=== PATIENT | male | born 1965 | race Caucasian/White ===

== ENCOUNTER → 2017-11-07 | Outpatient (CLI) | payer BC ==
[~2017-11-07] MED LIST: ABILI; ABILIFY PO; CITA-105 PO; CITA20TA4 PO; GADOBUTROL 10 MMOL/10 ML (GADAVIST) VIAL IV ONE; OLME1TAB22 PO
[2017-11-07 11:59] LABS: ALANINE AMINOTRANSFERASE 35 U/L (0-55); ALBUMIN 4.4 GM/DL (3.2-4.5); ALKALINE PHOSPHATASE 58 U/L (40-136); BILIRUBIN,TOTAL 0.5 MG/DL (0.1-1.0); BUN/CREATININE RATIO 8; CARBON DIOXIDE 21 MMOL/L (21-32); CHLORIDE 104 MMOL/L (98-107); CREATININE SERUM 0.96 MG/DL (0.60-1.30); GFR ESTIMATED > 60; GLUCOSE 130 MG/DL (70-105); SODIUM 138 MMOL/L (135-145)
--- NOTE | 2017-11-07 13:07 | Diagnostic Imaging Report ---
PROCEDURE: MR imaging of the brain with and without contrast. TECHNIQUE: Multiplanar, multisequence MR imaging of the brain was performed with and without contrast. INDICATION: History of meningioma resection. COMPARISON: MRI brain without and with IV contrast 08/31/2014. 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 There is only a short segment of dural thickening of approximately 2 cm in length and 0.2 cm in thickness where the mass was once seen. Expected postoperative mild enhancement and thickening in the dura underlying the craniotomy. No new abnormal intracranial signal or mass. No restricted water diffusion or hemosiderin deposition. Normal morphology of the major midline structures, sella, posterior fossa, and cerebellopontine angle. The orbits are unremarkable on this non-dedicated exam. No hydrocephalus or extra-axial fluid collections. Normal intracranial flow voids. Small mucus retention cyst in the floor of the right maxillary sinus. Mild mucosal thickening in the ethmoid and left frontal sinuses. The mastoids are clear. Normal bone marrow signal. IMPRESSION: 1. Interval resection of the meningioma in the floor of the anterior cranial fossa. Expected postoperative findings. No new mass. No acute intracranial CT findings. 2. Small mucus retention cyst in the floor of the right maxillary sinus. Mild mucosal thickening in the ethmoid and left frontal sinuses. Dictated by: Dictated on workstation # [id number]
== END ==
LOC: RAD 11:18
DX: J34.1 Cyst and mucocele of nose and nasal sinus (principal); J32.1 Chronic frontal sinusitis; J32.2 Chronic ethmoidal sinusitis; Z86.011 Personal history of benign neoplasm of the brain; Z98.890 Other specified postprocedural states
CPT/HCPCS: 36415; 70553; 80053

== ENCOUNTER 2021-05-07 05:36 | Outpatient (CLI) | payer BC ==
[~2021-05-07] VITALS: Ht 177.8 cm; Wt 85.3 kg
[~2021-05-07 05:36] MED LIST changes: -GADOBUTROL 10 MMOL/10 ML (GADAVIST) VIAL IV ONE
== END 2021-05-08 08:27 | disposition home or self-care (01) ==
LOC: PREOP 05:36
PROVIDERS: ATTEND Surgery
DX: Z01.818 Encounter for other preprocedural examination (principal)

== ENCOUNTER 2021-05-16 06:40 | Day surgery (SDC) | payer BC ==
[2021-05-16] VITALS (10 sets, daily range): BP systolic 112–138; BP diastolic 69–98
[~2021-05-16] VITALS: Ht 177.8 cm; Wt 85.3 kg
[2021-05-16] MEDS ORDERED: ceFAZolin 2 GM IV Premixed 50 ML IV ONE (07:00)
[2021-05-16] MEDS ORDERED: LIDOCAINE/EPI 1%-1:100,000 (XYLOCAINE) 20ML ONE (07:08)
[2021-05-16] MEDS: LACTATED RINGERS 1,000 ML IV PRN ×2 (07:26→09:32)
--- NOTE | 2021-05-16 07:49 | Progress Note-Pre Operative ---
Pre-Operative Progress Note H&P Reviewed The H&P was reviewed, patient examined and no changes noted. Time Seen by Provider: 07:45 Date H&P Reviewed: May 16, 2021 Time H&P Reviewed: 07:45 Pre-Operative Diagnosis: b/l inguinal hernia PANTERA DAVIS DO May 16, 2021 07:49
[2021-05-16] MEDS ORDERED: fentaNYL INJ 100 MCG/2 ML AMP ONE (07:58)
[2021-05-16] MEDS ORDERED: MIDAZOLAM 2 MG/2 ML (VERSED) VIAL ONE (07:58)
[2021-05-16] MEDS ORDERED: ONDANSETRON 4 MG/2 ML (SDV) Z0FRAN ONE (09:40)
[2021-05-16] MEDS ORDERED: SUCCINYLCHOLINE INJ 100 MG/5 ML SYR/VIAL ONE (09:40)
[2021-05-16] MEDS ORDERED: NEOSTIGMINE 3 MG/3 ML VIAL ONE (09:40)
[2021-05-16] MEDS ORDERED: ROCURONIUM 10 MG/ML 5 ML SYRINGE IV ONE (09:40)
[2021-05-16] MEDS ORDERED: GLYCOPYRROLATE 0.2 MG/ML (ROBINUL) 2 ML VIAL ONE (09:40)
[2021-05-16] MEDS ORDERED: proPOfol 200 MG/20 ML (DIPRIVAN) VIAL IV ONE (09:40)
[2021-05-16] MEDS ORDERED: LIDOCAINE PF 2% 5 ML (XYLOCAINE) VIAL ONE (09:40)
[2021-05-16] MEDS ORDERED: SEVOFLURANE (ULTANE) 15 ML INHAL SOLN ONE (10:30)
[2021-05-16] MEDS ORDERED: HYDROmorphone 2 MG/ML VIAL (DILAUDID) ONE (10:37)
--- NOTE | 2021-05-16 10:48 | Progress Note-Post Operative ---
Post-Operative Progess Note Surgeon (s)/Newspaper Columnist (s) Surgeon PANTERA DAVIS DO Newspaper Columnist: RYAN PetersenII Pre-Operative Diagnosis b/l inguinal hernia Post-Operative Diagnosis Left incarcerated inguinal hernia intraperitoneal mass Procedure & Operative Findings Date of Procedure 05/16/21 Procedure Performed/Findings 1) Laparoscopic Left Inguinal herniarraphy with mesh placement - robotic assisted 2) Exc of intraperitoneal mass After informed consent was obtained, the patient was brought to the operating room and placed on the operating table in a supine position. He was sterilely prepped and draped in a normal fashion. Local lidocaine was used to infiltrate the skin above the umbilicus. I made an incision with #11 blade, carried down to the skin into subcutaneous tissue and then deepened down the subcutaneous tissue with Bovie electrocautery down to the fascia. Fascia was incised with Bovie electrocautery and bluntly entered the abdomen, swept a finger around, placed 0 Vicryl [id number] suture and placed limited trocar port under direct visualization. Created pneumoperitoneum, able to visualize the hernia and took a picture of this and then placed two 8 mm ports about 10 cm on either side of the midline port using a local lidocaine, 11 blade for stab incision and then advanced the robotic port under direct visualization. Once this was in, I then placed the patient in Trendelenburg and then placed the working instruments, the fenestrated bipolar and the scissors. Looked on the left side and saw an incarcerated indirect inguinal hernia. I did not see any hernia defect on the right side. On the left there was Sigmoid colon in the hernia and actually it was attached to the peritoneal part of the sac. I carefully started to reduce this with grasper and with some pressure from the outside, unable to get it completely reduced; so I started dissection. I came across the peritoneum approximately 8 cm away from the hernia defect, going across laterally starting lateral about 17cm and cutting toward the median umbilical ligament. I then carefully dissected the visceral peritoneum away and down and then in the midline, went through the parietal side and dissected down to the pubic tubercle, dissecting this down carefully pushing the peritoneum away, I was able to then visualize the pubic tubercle and Jax's ligament. I went 2 cm posterior and at this point, we then had a critical view of the dissection, able to dissect 2 cm across the midline to the right side, 2 cm posterior to the Jax's ligament. I then took the scissors out and placed a Cadiere grasper to help reduce the colon from the hernia. Finally able to get the colon out of the hernia and then started to then parietalize the vas deferens and spermatic vessels right at the groove between Jax's and iliac vein and able to dissect, make sure there was no peritoneum between those two, able to see the indirect hernia space, took a picture of this, looked at the femoral space (no hernia seen). Then I carefully teased out the hernia sac and could visualize the indirect hernia space. Next I looked on the cord and cord structures. There was a large cord lipoma that I was able to reduce off the cord. I could clearly see the inguinal canal and the indirect space. Next I carried the posterior lateral dissection all the way out and then placed a 12 x 17 Midwieght Bard 3DMax mesh. It laid in nicely, covered the hernia defect and the rest of the area. It was above the peritoneum, sutured it at the pubic tubercle with a 3-0 Vicryl suture and tied this off. This appeared to lay in very nicely. I then brought down the pneumoperitoneum to about 8 mmHg and then started closing the peritoneum. Started medially and used a 2-0 V-lock barbed suture to start a running stitch to close the peritoneum. This was closed nicely, took a picture of the closure at this point, then removed both needles had switched to a suture sales warehouse driver from the scissors. I was looking at the sigmoid and saw a mass right next to it; took a picture and then elected to remove it for pathology. Carefully grasped next to it and started cutting out with the scissors, sharply and controlling bleeding with the cautery. Able to remove very carefully, looked like it was away from the colon and no injury seen. Placed a bag in the abdomen and then removed the speciment and passed off the table to send to pathology. The patient was then placed back supine, removed all ports under direct visualization, allowed pneumoperitoneum to escape and then closed the supraumbilical incision, closing the fascia with 0 Vicryl suture previously placed. Copiously irrigated all incisions and then closed the two small 8 mm incisions with two interrupted 4-0 undyed Monocryl subcuticular stitches and closed the supraumbilical incision with three interrupted undyed Monocryl subcuticular stitch. Area was cleaned and dried. Dermabond was placed. The patient tolerated the procedure. The sponge, instrument and needle counts were correct at the end of the case. Anesthesia Type GET Estimated Blood Loss Estimated blood loss (mL): less than 5ml Specimens/Packing Specimens Removed intraperitoneal mass PANTERA DAVIS DO May 16, 2021 10:48
[2021-05-16] MEDS ORDERED: ACHD5005 PO (10:49)
--- NOTE | 2021-05-16 10:50 | Discharge Inst-Surgical ---
Discharge Inst-Surgical Depart Medication/Instructions New, Converted or Re-Newed RX: Transmitted to Pharmacy Patient Instructions Follow up Appt: Make appointment for 1 week. [phone] Instructions: No lifting greater than 20 pounds. No strenuous activity. May shower in 24 hours, no tub bath or soaking. Use incentive spirometer at home as directed. No Smoking Skin/Wound Care: May remove bandages in am. You need to leave the Dermabond on incision it will fall off on it's own. Symptoms to Report: Appetite Changes, Extremity Discoloration, Numbness/Tingling, Swelling Increased, Bleeding Excessive, Eyesight Changes, Pain Increased, Urine Color Change, Constipation(Persistent), Fever over 101 degree F, Pain/Pressure in chest, Urinating Difficulty, Cough Up/Vomit Blood, Heart Beat Irreg/Pounding, Pain/Pressure in jaw, Cramps in feet or legs, Lightheadedness, Pain/Pressure in shoulder, Diarrhea(Persistent), Memory Changes Suddenly, Questions/Concerns, Weight gain consecutive days, Dizziness/Fainting, Nausea/Vomiting, Shortness of Breath, Weight gain over 2 pounds If questions or concerns contact your physician Or seek help at emergency department. Activity Activity as Tolerated: Yes Activity Instructions: Avoid Stress to Incision Driving Instructions: No Driving/Refer to Dr. Barrera Discharge Diet: No Restrictions Diet After 24 Hours: Clear Liquid if Nauseous If Any Problems/Questions/Issu: Contact Your Physician, Go to Emergency Room Skin/Wound Care Infection Signs and Symptoms: Increased Redness, Foul Odor of Wound, Increased Drainage, Skin Itchy or Has a Rash, Increased Swelling, Temperature Above 101 F Bathing Instructions: Shower Stitches/[place]/Dermabond Dis: PANTERA Duenas DO May 16, 2021 10:50
== END 2021-05-16 12:47 | disposition home or self-care (01) ==
LOC: SDC 06:40
PROVIDERS: ATTEND Surgery
DX: K40.90 Unilateral inguinal hernia, without obstruction or gangrene, not specified as recurrent (principal); K66.8 Other specified disorders of peritoneum; K65.8 Other peritonitis
CPT/HCPCS: 49650; 87081; C1781

== ENCOUNTER 2021-10-17 05:33 | Outpatient (RCR) | payer BC ==
[~2021-10-17] VITALS: Ht 180 cm; Wt 85.0 kg
[~2021-10-17 05:33] MED LIST changes: +ACHD5005 PO
== END 2021-10-18 13:58 | disposition home or self-care (01) ==
LOC: PREOP 05:33 → EDSTATUS 12:45 → PREOP 10-18 13:58
PROVIDERS: ATTEND Surgery
DX: Z01.818 Encounter for other preprocedural examination (principal)

== ENCOUNTER 2021-10-24 07:16 | Day surgery (SDC) | payer BC ==
[~2021-10-24] VITALS: Ht 180 cm; Wt 85.0 kg
[2021-10-24] VITALS (10 sets, daily range): BP systolic 133–151; BP diastolic 88–104
[2021-10-24] MEDS ORDERED: ceFAZolin 2 GM IV Premixed 50 ML IV ONE (07:30)
[2021-10-24] MEDS ORDERED: MIDAZOLAM 2 MG/2 ML (VERSED) VIAL ONE (07:36)
[2021-10-24] MEDS ORDERED: fentaNYL INJ 100 MCG/2 ML AMP ONE (07:36)
[2021-10-24] MEDS ORDERED: LIDOCAINE/EPI 1%-1:200,000 (XYLOCAINE) 30 ML VIAL ONE (07:39)
[2021-10-24] MEDS: LACTATED RINGERS 1,000 ML IV PRN ×2 (07:43→09:00)
--- NOTE | 2021-10-24 08:10 | Progress Note-Pre Operative ---
Pre-Operative Progress Note H&P Reviewed The H&P was reviewed, patient examined and no changes noted. Time Seen by Provider: 08:06 Date H&P Reviewed: Oct 24, 2021 Time H&P Reviewed: 08:06 Pre-Operative Diagnosis: Left inguinal hernia - incarcerated and recurrent, site marked PANTERA DAVIS DO Oct 24, 2021 08:10
[2021-10-24] MEDS ORDERED: ROCURONIUM 50 MG/5 ML (ZEMURON) VIAL IV ONE (08:21)
[2021-10-24] MEDS ORDERED: SEVOFLURANE (ULTANE) 15 ML INHAL SOLN ONE (08:21)
[2021-10-24] MEDS ORDERED: LIDOCAINE PF 2% 5 ML (XYLOCAINE) VIAL ONE (08:21)
[2021-10-24] MEDS ORDERED: ONDANSETRON 4 MG/2 ML (SDV) Z0FRAN ONE (08:21)
[2021-10-24] MEDS ORDERED: proPOfol 200 MG/20 ML (DIPRIVAN) VIAL IV ONE (08:21)
--- NOTE | 2021-10-24 09:24 | Progress Note-Post Operative ---
Post-Operative Progess Note Surgeon (s)/Prefabricated Houses Trimmer (s) Surgeon PANTERA DAVIS DO Prefabricated Houses Trimmer: Og Pre-Operative Diagnosis Left inguinal hernia - incarcerated and recurrent, site marked Post-Operative Diagnosis same plus large cord lipoma Procedure & Operative Findings Date of Procedure 10/24/21 Procedure Performed/Findings PROCEDURE: 1) Open Left inguinal hernia repair with mesh placement 2) Excision of cord lipoma COMPLICATIONS: None. INDICATIONS: The patient is a 56 yo male with a recurrent inguinal hernia - probably incarcerated. He understands risks and benefits of procedure and wished to proceed with procedure. Consent was signed in the chart. DESCRIPTION OF PROCEDURE: The patient was taken to the operating suite, was prepped and draped in sterile fashion. Surgical pause was performed. Local anesthetic was used to perform ileo- inguinal nerve block, pubic block and then infiltrated in the left lower quadrant. Incision was made with a #15 blade and cautery used to dissect down to the external oblique fascia. Then infiltrated her and then opened down through the external ring. Dissected down on the pubic tubercle and go around the cord and cord structures. A Basalt drain was placed and then pulled in the infero-lateral direction. Started to examine the cord and found a large cord lipoma coming from inside, no direct hernia defect. A indirect hernia present which was then dissected off of spermatic cord. I also dissected of the large cord lipoma. I was then able to feel inside the canal and could actually feel the previous mesh. It felt like everything had come up under the mesh. The hernia sac was then suture ligated with a figure of eight 2-0 Vicryl. Using a medium ProGrip mesh (cut to fit), it was secured at Jax's ligament and then incorporated around the spermatic cord and placed under the external oblique. Hemostasis was achieved. The external oblique was then closed recreating the external ring with a 3-0 Vicryl running stitch. Next, Keyona's fascia was reapproximated using another 3-0 Vicryl. Finally skin was then closed using 4-0 Monocryl in a subcuticular fashion. The abdomen was then washed and dried and Skin Affix was placed over the incision. The patient tolerated procedure well without any complications and taken to recovery room in stable condition. Dr. Foley assisted on this case helping to make incisions, close incisions, identify anatomy and hold it out of the way. Anesthesia Type LMA Estimated Blood Loss Estimated blood loss (mL): scant Specimens/Packing Specimens Removed cord lipoma PANTERA DAVIS DO Oct 24, 2021 09:24
[2021-10-24] MEDS ORDERED: ACHD5005 PO (09:26)
--- NOTE | 2021-10-24 09:27 | Anesthesia-General Post-Op ---
General Patient Condition Mental Status/LOC: Same as Preop Cardiovascular: Satisfactory Nausea/Vomiting: Absent Respiratory: Satisfactory Pain: Controlled Complications: Absent Post Op Complications Complications None Follow Up Care/Instructions Patient Instructions None needed. Anesthesia/Patient Condition Patient Condition Patient is doing well, no complaints, stable vital signs, no apparent adverse anesthesia problems. No complications reported per nursing. DUANE JERNIGAN CRNA Oct 24, 2021 09:27
--- NOTE | 2021-10-24 09:28 | Discharge Inst-Surgical ---
Discharge Inst-Surgical Depart Medication/Instructions New, Converted or Re-Newed RX: Transmitted to Pharmacy Patient Instructions Follow up Appt: Make appointment for 1 week. [phone] Instructions: No lifting greater than 20 pounds. No strenuous activity. May shower in 24 hours, no tub bath or soaking. Use incentive spirometer at home as directed. No Smoking Skin/Wound Care: May remove bandages in am. You need to leave the Dermabond on incision it will fall off on it's own. Symptoms to Report: Appetite Changes, Extremity Discoloration, Numbness/Tingling, Swelling Increased, Bleeding Excessive, Eyesight Changes, Pain Increased, Urine Color Change, Constipation(Persistent), Fever over 101 degree F, Pain/Pressure in chest, Urinating Difficulty, Cough Up/Vomit Blood, Heart Beat Irreg/Pounding, Pain/Pressure in jaw, Cramps in feet or legs, Lightheadedness, Pain/Pressure in shoulder, Diarrhea(Persistent), Memory Changes Suddenly, Questions/Concerns, Weight gain consecutive days, Dizziness/Fainting, Nausea/Vomiting, Shortness of Breath, Weight gain over 2 pounds If questions or concerns contact your physician Or seek help at emergency department. Activity Activity as Tolerated: Yes Activity Instructions: Avoid Stress to Incision Driving Instructions: No Driving/Refer to Dr. Barrera Discharge Diet: No Restrictions Diet After 24 Hours: Clear Liquid if Nauseous If Any Problems/Questions/Issu: Contact Your Physician, Go to Emergency Room Skin/Wound Care Infection Signs and Symptoms: Increased Redness, Foul Odor of Wound, Increased Drainage, Skin Itchy or Has a Rash, Increased Swelling, Temperature Above 101 F Bathing Instructions: Shower Stitches/[place]/Dermabond Dis: Dermabond Ice Pack: Ice On and Off Site (as needed for pain) PANTERA DAVIS DO Oct 24, 2021 09:28
[2021-10-24] MEDS ORDERED: HYDROcodone/APAP 5 MG/325 MG (LORTAB) TAB ONE (10:21)
[2021-10-24] MEDS ORDERED: HYDROcodone/APAP 5 MG/325 MG (LORTAB) TAB PO ONE (10:30)
== END 2021-10-24 11:05 | disposition home or self-care (01) ==
LOC: SDC 07:16
PROVIDERS: ATTEND Surgery
DX: K40.31 Unilateral inguinal hernia, with obstruction, without gangrene, recurrent (principal); D17.6 Benign lipomatous neoplasm of spermatic cord; I10 Essential (primary) hypertension; F17.220 Nicotine dependence, chewing tobacco, uncomplicated
CPT/HCPCS: 49521; 87081; C1781

== ENCOUNTER 2023-07-14 08:09 | Day surgery (SDC) | payer BC ==
[~2023-07-14] VITALS: Ht 177.8 cm; Wt 89.0 kg
[2023-07-14] MEDS ORDERED: LACTATED RINGERS 1,000 ML 1,000 ML IV STA (08:20)
--- NOTE | 2023-07-14 08:41 | Progress Note-Pre Operative ---
Pre-Operative Progress Note Date of Available H&P: Jul 01, 2023 Date H&P Reviewed: Jul 14, 2023 Time H&P Reviewed: 08:35 History & Physical: H&P Reviewed, Patient Examed, No changes noted Pre-Operative Diagnosis: Screening PANTERA DAVIS DO Jul 14, 2023 08:41
[2023-07-14] MEDS ORDERED: LACTATED RINGERS 1,000 ML 1,000 ML IV ONE (08:48)
[2023-07-14 08:54] VITALS: BP 150/99
[2023-07-14] MEDS ORDERED: MIDAZOLAM INJ 2 MG/2 ML VIAL ONE (09:22)
[2023-07-14 09:55] VITALS: BP 120/81
--- NOTE | 2023-07-14 09:58 | Progress Note-Post Operative ---
Post-Operative Progess Note Surgeon (s)/Consumer Product Advisor (s) Surgeon PANTERA DAVIS DO Consumer Product Advisor: CHRIS Gamboa Pre-Operative Diagnosis Screening Post-Operative Diagnosis Polyps diverticula int hemorrhoids Procedure & Operative Findings Date of Procedure 07/14/23 Procedure Performed/Findings Colonoscopy with snare polypectomy PROCEDURE NOTE: After informed consent was obtained, the patient was brought to the endoscopy suite, placed in bed in left lateral decubitus position. He was administered IV sedation by the C T TECH who then monitored his vitals the entire time, heart rate, blood pressure and pulse ox and the scope was inserted, on the way in noted some diverticula and took a picture. Pushed all the way to about 150 cm and pushed into the cecum, took a picture of the appendiceal orifice and noted the ileocecal valve. Then slowly withdrew the scope insufflating to look circumferentially at the haile starting in the cecum, up the ascending colon to the hepatic flexure, then down the transverse colon. I found two flat polyps through here and removed them with the snare. Continued to the splenic flexure, into the descending colon and down into the sigmoid. I found a large pedunculated polyp here and I was able to get all the way around and down to the base. Used heat and snare to remove this and then suctioned it up to the scope. I had to pull the scope all the way out to remove the polyp. Pushed the scope back in to Sigmoid and then slowly backed out and into the rectal vault. I saw very large veins, took a picture and finally retroflexed the scope. Took a picture of the internal hemorrhoids. The patient tolerated the procedure. He was recovered in endoscopy suite. Recommended for repeat colonoscopy in 3 years. Anesthesia Type IV sedation by C T TECH Estimated Blood Loss Estimated blood loss (mL): scant Specimens/Packing Specimens Removed transverse colon polyp sigmoid polyp PANTERA DAVIS DO Jul 14, 2023 09:58
--- NOTE | 2023-07-14 09:59 | Endoscopy Discharge Instruct ---
Endo Procedure/Findings Findings 1.: Polyp 2.: Diverticulosis 3.: Internal Hemorrhoids Discharge Instructions - Activity: You might feel a little sleepy until tomorrow. This is due to the medicine you received to relax you. Until tomorrow, you should: NOT drive a car, operate machinery or power tools. NOT drink any alcoholic beverages. NOT make any important decisions or sign importortant papers. Do not return to work until tomorrow, unless otherwise instructed. Resume previous activities tomorrow. Diet: Start by taking liquids. If you tolerate liquids, advance to solid food. 1.: Colonscopy in 3 years Notify Physician - If you experience excessive bleeding, unusual abdominal pain, fever, or chest pain, contact your doctor immediately. Follow-Up: Other Follow up in my office in one week PANTERA DAVIS DO Jul 14, 2023 09:59
[2023-07-14 10:05] VITALS: BP 120/81
[2023-07-14 10:16] VITALS: BP 120/81
--- NOTE | 2023-07-14 11:30 | Anesthesia-General Post-Op ---
MAC Patient Condition Mental Status/LOC: Same as Preop Cardiovascular: Satisfactory Nausea/Vomiting: Absent Respiratory: Satisfactory Pain: Controlled Complications: Absent Post Op Complications Complications None Follow Up Care/Instructions Patient Instructions None needed. Anesthesiology Discharge Order Discharge Order Patient is doing well, no complaints, stable vital signs, no apparent adverse anesthesia problems. No complications reported per nursing. EPHRAIM RICHARDSON CRNA Jul 14, 2023 11:30
== END 2023-07-14 10:14 | disposition home or self-care (01) ==
LOC: ENDO 08:09
PROVIDERS: ATTEND Surgery
DX: Z12.11 Encounter for screening for malignant neoplasm of colon (principal); D12.3 Benign neoplasm of transverse colon; D12.5 Benign neoplasm of sigmoid colon; K57.30 Diverticulosis of large intestine without perforation or abscess without bleeding; K64.8 Other hemorrhoids; F17.220 Nicotine dependence, chewing tobacco, uncomplicated

== ENCOUNTER → 2023-08-06 | Outpatient (CLI) | payer BC ==
[2023-08-06] MEDS: GADOTERATE 0.5 MMOL/ML (CLARISCAN) 20 ML VIAL IV ONE (09:27)
--- NOTE | 2023-08-06 10:39 | Diagnostic Imaging Report ---
PROCEDURE: MR imaging of the brain with and without contrast. TECHNIQUE: Multiplanar, multisequence MR imaging of the brain was performed with and without contrast. INDICATION: History of meningioma resection in 2014. Follow-up. COMPARISON: 11/07/2017. FINDINGS: No acute ischemia or hemorrhage. In the area of prior mass resection in the anterior cranial fossa there is a small focus of extra-axial enhancement measuring 0.7 x 0.6 cm and 0.4 cm craniocaudal. This was not present on the prior exam from 2018. No associated mass effect or parenchymal edema. The ventricles and cortical sulci are mildly prominent. The basilar cisterns are symmetric and unremarkable. The sellar and suprasellar regions have a normal appearance. The brainstem and posterior fossa are unremarkable. Mucosal thickening is seen in the paranasal sinuses, greatest in the left frontal sinus. The mastoid air cells demonstrate normal signal characteristics. The globes and orbits are symmetric and unremarkable. Prior craniotomy changes are seen in the left frontal region. IMPRESSION: 1. Findings concerning for local recurrence of the meningioma in the anterior cranial fossa right of midline. No associated mass effect or parenchymal edema. Recommend continued close follow-up. 2. No acute ischemia or hemorrhage. 3. Mild parenchymal volume loss. 4. Paranasal sinus disease, greatest in the left frontal sinus. Dictated by: Dictated on workstation # [id number]
== END ==
LOC: RAD 08:11
PROVIDERS: ATTEND Family Medicine
DX: Z08 Encounter for follow-up examination after completed treatment for malignant neoplasm (principal); G31.9 Degenerative disease of nervous system, unspecified; J32.8 Other chronic sinusitis; Z86.011 Personal history of benign neoplasm of the brain
CPT/HCPCS: 70553